=== PATIENT | male | born 1945 | race Caucasian/White ===

== ENCOUNTER 2021-05-25 13:49 | Emergency (ER) | payer MEDICARE ==
[~2021-05-25] VITALS: Ht 170.2 cm; Wt 102.1 kg
[~2021-05-25 13:49] MED LIST: CARDIZEM60 MG PO; HYDROCHLOROTH12.5 M1 PO; LISINOPRIL20 MG PO; QUINIDINE GLUC324 MG PO; ZYLOPRIM300 MG PO
== END 2021-05-25 16:35 | disposition home or self-care (01) ==
LOC: ER 14:55
DX: U07.1 COVID-19 (principal); I10 Essential (primary) hypertension; E11.9 Type 2 diabetes mellitus without complications; Z88.0 Allergy status to penicillin
CPT/HCPCS: 99283; U0002

== ENCOUNTER 2021-06-03 15:24 | Emergency (ER) | payer MEDICARE ==
[~2021-06-03] VITALS: Ht 170.2 cm; Wt 102.1 kg
[2021-06-03] MEDS ORDERED: SODIUM CHLORIDE 0.9% 1000ML 1,000 ML IV STA (15:33)
[2021-06-03] MEDS ORDERED: SODIUM CHLORIDE 0.9% 1000ML 1,000 ML ONE (15:45)
[2021-06-03 15:47] LABS: BASOPHILS % 0.2 % (0.0-1.0); EOSINOPHILS # (AUTO) 0.1 (0.0-0.4); EOSINOPHILS % 1.1 % (0.0-6.0); HEMOGLOBIN 12.7 g/dL (14.0-18.0); LYMPHOCYTES # (AUTO) 0.8 (1.0-3.2); LYMPHOCYTES % 14.3 % (18.0-39.1); MEAN CORPUSCULAR HEMOGLOBIN 30.9 pg (28-32); MEAN CORPUSCULAR HGB CONC 32.6 g/dL (31-35); MEAN CORPUSCULAR VOLUME 94.9 fL (81-99); MONOCYTES # (AUTO) 0.1 (0.2-0.8); MONOCYTES % 1.5 % (4.4-11.3); NEUTROPHILS # (AUTO) 4.4 (2.1-6.9); NEUTROPHILS % 82.7 % (38.7-80.0); PLATELET COUNT 256 x10e3/uL (140-360); RED BLOOD COUNT 4.11 x10e6/uL (4.3-5.7); RED CELL DISTRIBUTION WIDTH 13.1 % (11.7-14.4)
[2021-06-03 17:05] LABS: ANION GAP 14.2 mmol/L (8-16); POTASSIUM 5.2 mmol/L (3.5-5.1)
[2021-06-03 17:19] VITALS: BP 144/55
== END 2021-06-03 17:26 | disposition home or self-care (01) ==
LOC: ER 15:34
DX: U07.1 COVID-19 (principal); N17.9 Acute kidney failure, unspecified; R53.1 Weakness; I10 Essential (primary) hypertension; E11.9 Type 2 diabetes mellitus without complications; M10.9 Gout, unspecified
CPT/HCPCS: 36415; 80048; 85025; 99284; J7030